=== PATIENT | male | born 1990 | race African-American/Black ===

== ENCOUNTER 2022-07-24 00:33 | Emergency (ER) | payer OTHER ==
[2022-07-24 00:53] VITALS: BP 113/73; PULSE 79; RESP 18; TEMP 97.6; BMI 26.6
== END 2022-07-24 06:22 | disposition home or self-care (01) ==
LOC: JER 00:33
DX: Z00.00 Encounter for general adult medical examination without abnormal findings (principal)
CPT/HCPCS: 99281-25